=== PATIENT | male | born 1970 ===

== ENCOUNTER 2024-10-16 17:41 | Emergency (ER) | payer BC, SELFPAY ==
[2024-10-16 17:44] VITALS: BP 156/101
[2024-10-16 18:04] VITALS: BMI 24.4
--- NOTE | 2024-10-16 18:24 | ED.GENMED ---
History of Present Illness
General
Chief Complaint: Crisis Evaluation
Source: patient and family
Time Seen by Provider: 10/16/24 17:52
History of Present Illness
History of Present Illness:
54-year-old male presents to the emergency room because he is feeling suicidal and wants help. Patient admits to having a gambling addiction. He is been in rehab for this but evidently has not been able to refrain from gambling. He states he does
not trust himself. Because of this he feels like he no longer wants to live. He does not have a plan per se. He laments the fact he no longer has access to his handgun which his father now has. Patient denies ingesting any medications today
other than a 10 mg tablet of Adderall which she is prescribed. He admits to social alcohol use. He does occasionally use cocaine. His last use was few days ago.
Past History
Past History
ED Past Medical History: None
ED Past Surgical History: None
Social History
Tobacco: Non-smoker
Alcohol: Occasional
Personal:
Living: alone
Employment: Employed (finance)
Phy Exam
Physical Exam
Physical Exam:
General: Awake, Alert, Oriented X3. No acute distress.
Vitals: unremarkable
Head: Atraumatic
Eyes: Pupils equal, EOMI
Throat: Airway intact, no exudates
Neck: Trachea midline
Lungs: Clear and equal b/l
Heart: Regular rate, no murmurs
Abd: Soft, Nontender, No pulsatile mass
Neuro: Nonfocal
Skin: Warm, dry, no rash
Extremities: pulses equal b/l, no edema
Course
Orders/Labs/Results
Orders:
Orders
10/16/24 18:22
Crisis Consult Urgent
Reason for Consult: +SI
10/16/24 18:30
Acetaminophen Urgent
Alcohol Urgent
Complete Blood Count/With Diff Urgent
Comprehensive Metabolic Panel Urgent
Salicylate Urgent
10/16/24 19:57
ED Special Safety Observation ONCE
Observation level: Intermittent Observation
Comment:
Abnormal Lab Results
10/16/24
18:30
RBC 4.60 L 10^6/uL
(4.70-6.10)
MCH 33.5 H pg
(27.0-31.0)
MPV 11.1 H fL
(7.4-10.4)
Absolute Neuts (auto) 8.7 H 10^3/uL
(1.4-6.5)
Absolute Lymphs (auto) 1.0 L 10^3/uL
(1.2-3.4)
Neutrophils % 85.1 H %
(42.2-75.2)
Lymphocytes % 10.0 L %
(20.5-51.1)
Total Bilirubin 2.0 H mg/dl
(0.2-1.3)
Salicylates < 1.0 L mg/dl
(2.0-20.0)
Acetaminophen < 10 L ug/ml
(10-30)
10/16/24 18:30
10/16/24 18:30
Vital Signs
Initial and Last Documented VS:
Initial Vital Signs
Temp Pulse Resp BP Pulse Ox
98.9 F 95 16 156/101 98
10/16/24 17:44 10/16/24 17:44 10/16/24 17:44 10/16/24 17:44 10/16/24 17:44
Last Documented Vital Signs
Temp Pulse Resp BP Pulse Ox
98.9 F 80 18 125/88 96
10/16/24 17:44 10/16/24 20:36 10/16/24 20:36 10/16/24 20:36 10/16/24 20:36
MDM/Problems Addressed
Differential Diagnosis Includes:
Depression, suicidal ideations, suicide attempt
MDM/Problems Addressed:
Patient is quite adamant he has done nothing to hurt himself but does not want to live. He does not have a specific plan but does seem dejected. He is willing to go voluntarily for inpatient treatment. He is medically cleared to do so.
*Pulse Oximetry
Patient hypoxic: no
*Critical Care Note
Total Time (30-74mins, 75-104mins- exclusive of procedures): Not Applicable
ED Attending Note
-
Portions of this chart may have been created with voice recognition software.� Occasional wrong word or��sound alike� substitutions may have occurred due to the inherent limitations of voice recognition software.
Discharge Plan
Departure
Patient Disposition: Psych Facility
Condition: Fair
Discharge Problem:
Suicidal ideation
Prescriptions:
No Action
doxycycline hyclate 100 MG capsule
100 mg PO Q12 Qty: 19 0RF
Referrals:
Hung Neri DO [Family Provider] -
Interventions
Interventions:
*Risk Screen - Suicide Last Done: 10/16/24 17:44
*General Assessment Last Done: 10/16/24 18:04
*Neglect/Abuse Screening Last Done: 10/16/24 18:04
*ED- Fall Risk Assessment Last Done: 10/16/24 18:04
*ED COVID-19 Vaccine History Last Done: 10/16/24 18:04
*Nursing Disposition Last Done: 10/16/24 23:45
ED-Psychological Assessment Last Done: 10/16/24 18:04
Discharge Date and Time
Discharge Date/Time: 10/16/24 23:46
Print Language: BELIZEAN
[2024-10-16 18:41] LABS: % Basophils 0.2 % (0-2); % Immature Granulocytes 0.3 % (0-0.5); % Monocytes 4.4 % (1.7-9.3); % Neutrophils 85.1 % (42.2-75.2); Absolute Monocytes 0.5 10^3/uL (0.1-0.6); Absolute Neutrophils 8.7 10^3/uL (1.4-6.5); Hematocrit 41.8 % (39.0-52.0); Hemoglobin 15.4 g/dL (13.0-18.0); Mean Corp Hgb Conc. 36.8 g/dL (33.0-37.0); Mean Corpuscular Hgb 33.5 pg (27.0-31.0); Mean Corpuscular Volume 90.9 fL (80.0-94.0); Mean Platelet Volume 11.1 fL (7.4-10.4); Nucleated Red Blood Cells % 0 % (-); Platelet Count 173 10^3/uL (130-400); Red Cell Dist. Width 12.6 % (11.5-14.5); White Blood Cell Count 10.2 10^3/uL (4.8-10.8)
[2024-10-16 18:54] LABS: ALT (SGPT) 34 U/L (0-50); AST (SGOT) 25 U/L (17-59); Acetaminophen < 10 ug/ml (10-30); Albumin 4.5 g/dl (3.5-5.0); Alcohol None Detected; Alkaline Phosphatase 64 U/L (38-126); Blood Urea Nitrogen 18 mg/dl (9-20); Calcium 9.7 mg/dl (8.4-10.2); Carbon Dioxide 25 mmol/L (22-30); Chloride 103 mmol/L (98-107); Estimated Creatinine Clearance 94 ml/min; Glucose 99 mg/dl (70-99); Potassium 4.3 mmol/L (3.5-5.1); Salicylate < 1.0 mg/dl (2.0-20.0); Sodium 137 mmol/L (135-145); Total Protein 7.1 g/dl (6.3-8.2); eGFR > 60.00
[2024-10-16 20:36] VITALS: BP 125/88
== END 2024-10-16 23:46 ==
LOC: EMR 17:41
PROVIDERS: EMERGENCY PHYSICIAN Emergency Medicine; FAMILY PHYSICIAN Family Medicine
DX: R45.851 Suicidal ideations (principal); F63.0 Pathological gambling; F10.90 Alcohol use, unspecified, uncomplicated; F14.90 Cocaine use, unspecified, uncomplicated
CPT/HCPCS: 99285; 80053; 80143; 80179; 82077; 85025